=== PATIENT | male | born 1950 | race Two or more races ===

== ENCOUNTER 2017-07-10 10:16 | Inpatient (IN) | payer OTHER ==
[~2017-07-10] VITALS: Ht 160 cm; Wt 63.5 kg
[~2017-07-10 10:16] MED LIST: IBERSALTAN
[2017-07-10] MEDS ORDERED: LEVAQUIN500 MG PO (10:38)
[2017-07-10] MEDS ORDERED: NORVASC5 MG PO (10:39)
[2017-07-10] MEDS ORDERED: IVERMECTIN3 MG (10:58)
[2017-07-10] MEDS ORDERED: AVAPRO75 MG PO (11:03)
[2017-07-17] MEDS ORDERED: METOPROLOL TART50 MG PO (09:01)
[2017-07-17] MEDS ORDERED: XARELTO20 MG PO ×2 (09:01→09:04)
[2017-07-17] MEDS ORDERED: LASIX20 MG PO (09:01)
== END 2017-07-17 13:00 | disposition home or self-care (01) | DRG 208 ==
LOC: ER 10:16 → ICU 15:34 → MEDI 07-13 17:56
PROC: 5A1945Z Respiratory Ventilation, 24-96 Consecutive Hours (ICD-10-PCS; principal; 2017-07-10)
PROC: 0BH17EZ Insertion of Endotracheal Airway into Trachea, Via Natural or Artificial Opening (ICD-10-PCS; 2017-07-10)
PROC: 3E0F7GC Introduction of Other Therapeutic Substance into Respiratory Tract, Via Natural or Artificial Opening (ICD-10-PCS; 2017-07-10)
PROC: 4A033R1 Measurement of Arterial Saturation, Peripheral, Percutaneous Approach (ICD-10-PCS; 2017-07-10)
PROC: B246ZZZ Ultrasonography of Right and Left Heart (ICD-10-PCS; 2017-07-10)
PROC: 4A12X4Z Monitoring of Cardiac Electrical Activity, External Approach (ICD-10-PCS; 2017-07-13)
DX: J44.1 Chronic obstructive pulmonary disease with (acute) exacerbation (principal); J96.01 Acute respiratory failure with hypoxia; I50.33 Acute on chronic diastolic (congestive) heart failure; J45.41 Moderate persistent asthma with (acute) exacerbation; I47.1 Supraventricular tachycardia; I48.3 Typical atrial flutter; J20.9 Acute bronchitis, unspecified; J44.0 Chronic obstructive pulmonary disease with (acute) lower respiratory infection; I48.0 Paroxysmal atrial fibrillation; I11.0 Hypertensive heart disease with heart failure; J84.112 Idiopathic pulmonary fibrosis; I34.0 Nonrheumatic mitral (valve) insufficiency; Z87.891 Personal history of nicotine dependence

== ENCOUNTER 2018-03-05 21:15 | Inpatient (IN) | payer OTHER ==
[~2018-03-05] VITALS: Ht 165.1 cm; Wt 85.7 kg
[~2018-03-05 21:15] MED LIST changes: +AVAPRO75 MG PO; +IVERMECTIN3 MG; +LASIX20 MG PO; +LEVAQUIN500 MG PO; +METOPROLOL TART50 MG PO; +NORVASC5 MG PO; +XARELTO20 MG PO
== END 2018-03-29 07:05 | disposition designated cancer center or children's hospital (05) | DRG 199 ==
LOC: ER 21:15 → ICU-2 03-06 09:12 → ICU 03-20 20:38
PROC: 0W9B00Z Drainage of Left Pleural Cavity with Drainage Device, Open Approach (ICD-10-PCS; principal; 2018-03-06)
PROC: 3E0F7GC Introduction of Other Therapeutic Substance into Respiratory Tract, Via Natural or Artificial Opening (ICD-10-PCS; 2018-03-06)
PROC: 4A033R1 Measurement of Arterial Saturation, Peripheral, Percutaneous Approach (ICD-10-PCS; 2018-03-06)
PROC: 5A09457 Assistance with Respiratory Ventilation, 24-96 Consecutive Hours, Continuous Positive Airway Pressure (ICD-10-PCS; 2018-03-06)
PROC: BW40ZZZ Ultrasonography of Abdomen (ICD-10-PCS; 2018-03-18)
PROC: 02H633Z Insertion of Infusion Device into Right Atrium, Percutaneous Approach (ICD-10-PCS; 2018-03-24)
DX: J93.83 Other pneumothorax (principal); J96.01 Acute respiratory failure with hypoxia; J44.1 Chronic obstructive pulmonary disease with (acute) exacerbation; E87.2 Acidosis; I48.3 Typical atrial flutter; J45.41 Moderate persistent asthma with (acute) exacerbation; J98.11 Atelectasis; J44.0 Chronic obstructive pulmonary disease with (acute) lower respiratory infection; J20.9 Acute bronchitis, unspecified; J84.112 Idiopathic pulmonary fibrosis; I48.0 Paroxysmal atrial fibrillation; I10 Essential (primary) hypertension; I95.89 Other hypotension; T81.82XA Emphysema (subcutaneous) resulting from a procedure, initial encounter

== ENCOUNTER 2018-04-08 11:07 | Emergency (ER) | payer OTHER ==
[~2018-04-08] VITALS: Ht 157.5 cm; Wt 77.1 kg
== END 2018-04-08 12:18 | disposition home or self-care (01) ==
LOC: ER 11:07
DX: T82.598A Other mechanical complication of other cardiac and vascular devices and implants, initial encounter (principal)

== ENCOUNTER 2018-10-12 17:58 | Emergency (ER) | payer OTHER ==
[~2018-10-12] VITALS: Ht 170.2 cm; Wt 79.4 kg
== END 2018-10-12 21:47 | disposition home or self-care (01) ==
LOC: ER 17:58
DX: J11.1 Influenza due to unidentified influenza virus with other respiratory manifestations (principal); J45.998 Other asthma

== ENCOUNTER 2018-10-26 19:09 | Emergency (ER) | payer OTHER ==
[~2018-10-26] VITALS: Ht 175.3 cm; Wt 83.9 kg
[2018-10-26] MEDS ORDERED: COREG CR40 MG (19:29)
[2018-10-26] MEDS ORDERED: XARELTO20 MG (19:29)
[2018-10-26] MEDS ORDERED: AVAPRO300 MG (19:29)
== END 2018-10-27 02:00 | disposition home or self-care (01) ==
LOC: ER 19:09
DX: J44.9 Chronic obstructive pulmonary disease, unspecified (principal); J11.1 Influenza due to unidentified influenza virus with other respiratory manifestations

== ENCOUNTER 2018-10-29 07:53 | Outpatient (CLI) | payer OTHER ==
[~2018-10-29 07:53] MED LIST changes: +AVAPRO300 MG; +COREG CR40 MG; +XARELTO20 MG
== END 2018-10-29 13:42 | disposition home or self-care (01) ==
LOC: NUCLEAR 07:53
DX: I50.32 Chronic diastolic (congestive) heart failure (principal)

== ENCOUNTER 2018-12-20 23:18 | Emergency (ER) | payer OTHER ==
[~2018-12-20] VITALS: Ht 157.5 cm; Wt 79.4 kg
[2018-12-21] MEDS ORDERED: LEVALBUTER1.25 MG/3 IH (03:08)
[2018-12-21] MEDS ORDERED: BUDESONIDE0.5 MG/2 M IH (03:08)
[2018-12-21] MEDS ORDERED: IPRATROPIU0.2 MG/1 M IH (03:08)
== END 2018-12-21 03:13 | disposition home or self-care (01) ==
LOC: ER 23:18
DX: J44.9 Chronic obstructive pulmonary disease, unspecified (principal); B34.9 Viral infection, unspecified; Z99.81 Dependence on supplemental oxygen

== ENCOUNTER 2019-01-02 18:58 | Emergency (ER) | payer OTHER ==
[~2019-01-02] VITALS: Ht 152.4 cm; Wt 79.4 kg
[~2019-01-02 18:58] MED LIST changes: +BUDESONIDE0.5 MG/2 M IH; +IPRATROPIU0.2 MG/1 M IH; +LEVALBUTER1.25 MG/3 IH
[2019-01-02] MEDS ORDERED: IPRATROPIU0.2 MG/1 M IH (22:40)
[2019-01-02] MEDS ORDERED: LASIX20 MG PO (22:40)
[2019-01-02] MEDS ORDERED: LEVALBUTER1.25 MG/3 IH (22:40)
== END 2019-01-02 23:15 | disposition home or self-care (01) ==
LOC: ER 18:58
DX: J44.1 Chronic obstructive pulmonary disease with (acute) exacerbation (principal)

== ENCOUNTER 2019-05-20 20:03 | Emergency (ER) | payer OTHER ==
[~2019-05-20] VITALS: Ht 157.5 cm; Wt 77.1 kg
== END 2019-05-20 22:47 | disposition home or self-care (01) ==
LOC: ER 20:03
DX: J44.9 Chronic obstructive pulmonary disease, unspecified (principal)

== ENCOUNTER 2019-05-22 10:04 | Emergency (ER) | payer OTHER ==
[~2019-05-22] VITALS: Ht 157.5 cm; Wt 77.1 kg
== END 2019-05-22 18:36 | disposition home or self-care (01) ==
LOC: ER 10:04
DX: J44.9 Chronic obstructive pulmonary disease, unspecified (principal)

== ENCOUNTER 2019-10-12 10:44 | Emergency (ER) | payer OTHER ==
[~2019-10-12] VITALS: Ht 157.5 cm; Wt 77.1 kg
[2019-10-12] MEDS ORDERED: CARVEDILOL12.5 MG (11:02)
[2019-10-12] MEDS ORDERED: ESBRIET267 MG PO (11:05)
== END 2019-10-12 14:34 | disposition home or self-care (01) ==
LOC: ER 10:44
DX: J44.9 Chronic obstructive pulmonary disease, unspecified (principal); R06.02 Shortness of breath; Z99.81 Dependence on supplemental oxygen

== ENCOUNTER 2020-03-24 14:30 | Emergency (ER) | payer OTHER ==
[~2020-03-24] VITALS: Ht 160 cm; Wt 81.2 kg
[~2020-03-24 14:30] MED LIST changes: +CARVEDILOL12.5 MG; +ESBRIET267 MG PO
== END 2020-03-24 17:27 | disposition home or self-care (01) ==
LOC: ER 14:30
DX: I11.0 Hypertensive heart disease with heart failure (principal); I50.9 Heart failure, unspecified; R06.02 Shortness of breath; Z03.818 Encounter for observation for suspected exposure to other biological agents ruled out